=== PATIENT | female | born 1995 | race Caucasian/White ===

== ENCOUNTER 2018-06-30 11:39 | Inpatient (IN) | payer OTHER ==
[2018-06-30 12:11] VITALS: BMI 26.5
--- NOTE | 2018-06-30 14:07 | HP ---
COWS - Scale Resting Pulse: 0= [place] 80 or Below Sweatin=Flushed/Facial Moisture Restless Observation: 1= Difficult to Sit Still Pupil Size: 0= Normal to Room Light Bone or Joint Aches: 2= Severe Diffuse Aches Runny Nose/ Eye Tearin= Runny Nose/Eyes GI Upset > 30mins: 1= Stomach Cramp Tremor Observation: 2= Slight Tremor Visible Yawning Observation: 2= >3x During Session Anxiety or Irritability: 2=Irritable/Anxious Goose Flesh Skin: 3=Piloerection COWS Score: 17 CIWA Score - Admission Criteria OASAS Guidelines: Admission for Medically Managed Detox: Requires at least one of the followin. CIWA greater than 12 2. Seizures within the past 24 hours 3. Delirium tremens within the past 24 hours 4. Hallucinations within the past 24 hours 5. Acute intervention needed for co occurring medical disorder 6. Acute intervention needed for co occurring psychiatric disorder 7. Severe withdrawal that cannot be handled at a lower level of care (continued vomiting, continued diarrhea, abnormal vital signs) requiring intravenous medication and/or fluids 8. Admission ROS S - HPI Chief Complaint: I need to be a detox place to get clean from using percocets. this is my first detox. Allergies/Adverse Reactions: Allergies Allergy/AdvReac Type Severity Reaction Status Date / Time esomeprazole [From Nexium] Allergy Verified 06/30/18 12:04 escitalopram [From Lexapro] AdvReac Verified 06/30/18 12:03 History of Present Illness: pt is a 22yr old female with a history of percocet dependence seeking detox for treatment. This is her first detox ever. Pt has a h/o of Polycystic kidney syndrome with cyst to ovaries, pancreas, kidneys. Pt states she is being followed by her kidney specialist. pt has a h/o of depression, anxiety Exam Limitations: No Limitations - Ebola screening Have you traveled outside of the country in the last 21 days: No Have you had contact with anyone from an Ebola affected area: No Have you been sick,other than usual withdrawal symptoms: No Do you have a fever: No - Review of Systems Constitutional: Chills, Diaphoresis, Night Sweats, Changes in sleep EENT: reports: Tearing, Nose Congestion Respiratory: reports: No Symptoms reported, Productive cough GI: reports: Constipated, Diarrhea, Poor Appetite, Poor Fluid Intake, Abdominal cramping : reports: Frequency, Other (polysystic syndrome in ovaries, kidney, pancreas area . Only has one functional kidney) Musculoskeletal: reports: Joint Pain, Muscle Pain Integumentary: reports: Flushing, Sweating Neuro: reports: Headache, Tingling, Tremors Endocrine: reports: Excessive Sweating, Flushing, Intolerance to Cold, Intolerance to Heat Hematology: reports: No Symptoms Reported Psychiatric: reports: Judgement Intact, Mood/Affect Appropiate, Orientated x3, Agitated, Anxious Other Systems: Reviewed and Negative Patient History - Patient Medical History Hx Anemia: No Hx Asthma: Yes Hx Chronic Obstructive Pulmonary Disease (COPD): No Hx Cancer: No Hx Cardiac Disorders: No Hx Congestive Heart Failure: No Hx Hypertension: No Hx Hypercholesterolemia: No Hx Pacemaker: No HX Cerebrovascular Accident: No Hx Seizures: No Hx Dementia: No Hx Diabetes: No Hx Gastrointestinal Disorders: No Hx Liver Disease: No Hx Genitourinary Disorders: Yes (Polycystic kidney syndrome) Hx Sexually Transmitted Disorders: No Hx Renal Disease (ESRD): No Hx Thyroid Disease: No Hx Human Immunodeficiency Virus (HIV): No (negative) Hx Hepatitis C: No Hx Depression: Yes Hx Suicide Attempt: Yes (tried to OD age 14. denies any S/H ideations today) Hx Bipolar Disorder: No Hx Schizophrenia: No - Patient Surgical History Past Surgical History: No - PPD History Previous Implant?: Yes Documented Results: Positive w/o proof Implanted On Prior R Admission?: No PPD to be Administered?: No - Reproductive History Patient is a Female of Child Bearing Age (11 -55 yrs old): Yes Last Menstrual Period: 06/28/18 Patient : No - Smoking Cessation Smoking history: Never smoked Have you smoked in the past 12 months: No Hx Chewing Tobacco Use: No Initiated information on smoking cessation: No - Substance & Tx. History Hx Alcohol Use: Yes - Substances abused None Other (specify): percocet Substance route: Oral Frequency: Daily Amount used: 2 pills ( 10mg each) Age of first use: 16 Date of last use: 06/29/18 Marijuana/Hashish Substance route: Smoking Frequency: Daily Amount used: 1 joint Age of first use: 13 Date of last use: 06/30/18 Family Disease History - Family Disease History Family History: Denies Admission Physical Exam BHS - Vital Signs Vital Signs: Vital Signs - 24 hr 06/30/18 06/30/18 12:05 13:33 Temperature 98 F 98 F Pulse Rate 72 72 Respiratory 18 18 Rate Blood Pressure 107/70 107/70 - Physical General Appearance: Yes: Appropriately Dressed, Moderate Distress, Tremorous, Irritable, Sweating, Anxious HEENTM: Yes: Normal Voice, Nasal Congestion, Rhinorrhea Respiratory: Yes: Lungs Clear, Normal Breath Sounds, No Respiratory Distress Neck: Yes: No masses,lesions,Nodules Breast: Yes: Within Normal Limits Cardiology: Yes: Regular Rhythm, Regular Rate, S1, S2 Abdominal: Yes: Normal Bowel Sounds Genitourinary: Yes: Frequency Back: Yes: Normal Inspection Musculoskeletal: Yes: full range of Motion, Back pain Extremities: Yes: Normal Capillary Refill, Non-Tender, Tremors Neurological: Yes: Fully Oriented, Alert, Normal Response Integumentary: Yes: Diaphoresis Lymphatic: Yes: Within Normal Limits - Diagnostic (1) Opioid dependence with withdrawal Current Visit: Yes Status: Chronic (2) Polycystic kidney, adult type Current Visit: Yes Status: Chronic (3) Asthma Current Visit: Yes Status: Chronic Qualifiers: Asthma severity: mild Asthma persistence: unspecified Asthma complication type: unspecified Qualified Code(s): J45.909 - Unspecified asthma , uncomplicated Cleared for Admission [facility] - Detox or Rehab [facility] Level of Care: Medically Managed Detox Regimen/Protocol: Methadone Breathalyzer - Breathalyzer Breathalyzer: 0 POC Urine test - Test device test lot number: [id number] Expiration date: 11/07/19 - Control test control: Yes - Result Urine Test Results: Negative - NO line present Urine Drug Screen - Test Device Lot number: [id number] Expiration date: 02/06/20 - Control Is test valid?: Yes - Results Drug screen NEGATIVE: No Urine drug screen results: THC-Marijuana, OXY-Oxycodone, BUP-Suboxone Inpatient Rehab Admission - Rehab Decision to Admit Inpatient rehab admission?: No
[2018-06-30] MEDS ORDERED: MENTHOL/PHENOL 1 EACH UD MM PRN (14:36)
[2018-06-30] MEDS ORDERED: MAG HYDROX/AL HYDROX/SIMETH 30 ML UNIT-DOSE CUP PO PRN (14:36)
[2018-06-30] MEDS ORDERED: ACETAMINOPHEN 325 MG TABLET (FP) PO PRN ×2 (14:36)
[2018-06-30] MEDS ORDERED: MAGNESIUM CITRATE 300 ML BOTTLE PO PRN (14:36)
[2018-06-30] MEDS ORDERED: MAGNESIUM HYDROX 2400MG/30ML ORAL SUSPENSION 30 ML CUP PO PRN (14:36)
[2018-06-30] MEDS ORDERED: ONDANSETRON *ODT* 4 MG TABLET SL PRN (14:36)
[2018-06-30] MEDS ORDERED: IBUPROFEN 600 MG TABLET (FP) PO PRN (14:36)
[2018-06-30] MEDS ORDERED: MELATONIN 5 MG TABLETS PO PRN (14:36)
[2018-06-30] MEDS ORDERED: P-EPHED 60MG/TRIPROLIDI 2.5MG TABLET PO PRN (14:36)
[2018-06-30] MEDS ORDERED: BACLOFEN 10 MG TABLET (FP) PO PRN (14:36)
[2018-06-30] MEDS ORDERED: BISMUTH SUBSALICYLATE 524 MG/30 ML UD PO PRN (14:36)
[2018-06-30] MEDS ORDERED: cloNIDine HCL 0.1 MG TABLET PO PRN (14:36)
[2018-06-30] MEDS ORDERED: METHADONE HCL 10 MG TABLET (FOR DETOX USE ONLY) PO ONE ×3 (17:00→23:00)
[2018-06-30] MEDS: METHADONE HCL 10 MG TABLET (FOR DETOX USE ONLY) PO ONE (18:04)
[2018-06-30] MEDS: THIAMINE HCL 100 MG TABLET (FP) PO SCH (22:28)
[2018-06-30] MEDS: diazePAM 5 MG TABLET PO PRN (22:28)
[2018-06-30 22:58] LABS: HEMATOCRIT 35.2 % (32.4-45.2); HEMOGLOBIN 11.8 GM/dL (10.7-15.3); MCH 31.5 pg (25.7-33.7); MCHC 33.7 g/dl (32.0-36.0); MEAN CELL VOLUME 93.5 fl (80-96); MEAN PLT VOLUME 10.8 fl (7.5-11.1); PLATELET COUNT 172 K/MM3 (134-434); RBC 3.77 M/mm3 (3.60-5.2); RDW 13.1 % (11.6-15.6); WHITE BLOOD COUNT 5.2 K/mm3 (4.0-10.0)
[2018-06-30 23:07] LABS: ALBUMIN 3.8 g/dl (3.4-5.0); ALK PHOS 46 U/L (45-117); ANION GAP 3 MMOL/L (8-16); BILIRUBIN,TOTAL 0.3 mg/dL (0.2-1); BLOOD UREA NITROGEN 16 mg/dL (7-18); CALCIUM 9.1 mg/dL (8.5-10.1); CHLORIDE 106 mmol/L (98-107); CO2 31 mmol/L (21-32); CREATININE 0.9 mg/dL (0.55-1.3); GLUCOSE,RANDOM 75 mg/dL (74-106); SGOT/AST 15 U/L (15-37); SGPT/ALT 17 U/L (13-61); SODIUM 140 mmol/L (136-145); TOT PROT 6.7 g/dl (6.4-8.2)
[2018-06-30 23:13] LABS: EPI CELLS 0.4 /HPF (0-5/HPF); PH,URINE 5.5 (5.0-8.0); URINE APPEARANCE TURBID; URINE BACTERIA 126.7 /hpf (NEGATIVE); URINE BILIRUBIN NEGATIVE (NEGATIVE); URINE CASTS 1 /lpf (0-8); URINE COLOR YELLOW; URINE GLUCOSE (UA) NEGATIVE (NEGATIVE); URINE KETONE NEGATIVE (NEGATIVE); URINE LEUK ESTERASE 3+ (NEGATIVE); URINE NITRITE NEGATIVE (NEGATIVE); URINE PROTEIN 2+ (NEGATIVE); URINE RBC 86 /hpf (0-4); URINE UROBILINOGEN 0.2 mg/dL (0.2-1.0); URINE WBC 2012 /hpf (0-5)
[2018-07-01] MEDS: diazePAM 5 MG TABLET PO PRN ×2 (06:09→22:12)
[2018-07-01] MEDS: PRENATAL VITAMINS W/ FOLIC ACID TABLET (FP) PO SCH (10:18)
[2018-07-01] MEDS: METHADONE HCL 10 MG TABLET (FOR DETOX USE ONLY) PO ONE ×2 (10:19→11:55)
[2018-07-01] MEDS ORDERED: METHADONE HCL 10 MG TABLET (FOR DETOX USE ONLY) PO ONE ×2 (11:37→12:05)
--- NOTE | 2018-07-01 11:45 | PN ---
BHS COWS - Scale Resting Pulse: 0= [place] 80 or Below Sweatin=Flushed/Facial Moisture Restless Observation: 1= Difficult to Sit Still Pupil Size: 0= Normal to Room Light Bone or Joint Aches: 1= Mild Discomfort Runny Nose/ Eye Tearin= Nasal Congestion GI Upset > 30mins: 0= None Tremor Observation of Outstretched Hands: 2= Slight Tremor Visible Yawning Observation: 0= None Anxiety or Irritability: 2=Irritable/Anxious Goose Flesh Skin: 3=Piloerection COWS Score: 12 BHS Progress Note (SOAP) Subjective: anxiety sweats chills i want my methadone dose lowered Objective: 07/01/18 11:42 Vital Signs Temperature 97.9 F 07/01/18 09:18 Pulse Rate 67 07/01/18 09:18 Respiratory Rate 18 07/01/18 09:18 Blood Pressure 136/62 07/01/18 09:18 O2 Sat by Pulse Oximetry (%) Laboratory Tests 06/30/18 06/30/18 06/30/18 15:00 15:00 15:00 WBC 5.2 RBC 3.77 Hgb 11.8 Hct 35.2 MCV 93.5 MCH 31.5 MCHC 33.7 RDW 13.1 Plt Count 172 MPV 10.8 Sodium 140 Potassium 4.0 Chloride 106 Carbon Dioxide 31 Anion Gap 3 L BUN 16 Creatinine 0.9 Creat Clearance w eGFR 76.92 Random Glucose 75 Calcium 9.1 Total Bilirubin 0.3 AST 15 ALT 17 Alkaline Phosphatase 46 Total Protein 6.7 Albumin 3.8 Urine Color Urine Appearance Urine pH Ur Specific [place] Urine Protein Urine Glucose (UA) Urine Ketones Urine Blood Urine Nitrite Urine Bilirubin Urine Urobilinogen Ur Leukocyte Esterase Urine WBC (Auto) Urine RBC (Auto) Urine Casts (Auto) U Epithel Cells (Auto) Urine Bacteria (Auto) RPR Titer Nonreactive 06/30/18 22:50 WBC RBC Hgb Hct MCV MCH MCHC RDW Plt Count MPV Sodium Potassium Chloride Carbon Dioxide Anion Gap BUN Creatinine Creat Clearance w eGFR Random Glucose Calcium Total Bilirubin AST ALT Alkaline Phosphatase Total Protein Albumin Urine Color Yellow Urine Appearance Turbid Urine pH 5.5 Ur Specific [place] 1.018 Urine Protein 2+ H Urine Glucose (UA) Negative Urine Ketones Negative Urine Blood 3+ H Urine Nitrite Negative Urine Bilirubin Negative Urine Urobilinogen 0.2 Ur Leukocyte Esterase 3+ H Urine WBC (Auto) 2011 Urine RBC (Auto) 86 Urine Casts (Auto) 1 U Epithel Cells (Auto) 0.4 Urine Bacteria (Auto) 126.7 RPR Titer aaox3 ambulating no acute distress labs noted pt has her menstruation cycle Assessment: 07/01/18 11:44 withdrawal sx Plan: continue detox with lesser dose of methadone increase fluids
--- NOTE | 2018-07-01 12:10 | EKG ---
Test Reason : Blood Pressure : / mmHG Vent. Rate : 063 BPM Atrial Rate : 063 BPM P-R Int : 160 ms QRS Dur : 090 ms QT Int : 428 ms P-R-T Axes : 005 062 009 degrees QTc Int : 437 ms NORMAL SINUS RHYTHM NORMAL ECG NO PREVIOUS ECGS AVAILABLE Confirmed by CARLOS COTTER MD ([id number]) on 07/01/2018 12:10:23 PM Referred By: ALIYA NEAL Confirmed By:CARLOS COTTER MD
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
[2018-07-01] MEDS: hydrOXYzine PAMOATE 25 MG CAPSULE (FP) PO PRN ×2 (13:13→21:24)
[2018-07-01] MEDS: THIAMINE HCL 100 MG TABLET (FP) PO SCH (22:12)
[2018-07-02] MEDS: diazePAM 5 MG TABLET PO PRN ×3 (08:57→22:20)
[2018-07-02] MEDS ORDERED: METHADONE HCL 5 MG TABLET (FOR DETOX USE ONLY) PO ONE (10:00)
[2018-07-02] MEDS ORDERED: METHADONE HCL 10 MG TABLET (FOR DETOX USE ONLY) PO ONE ×2 (10:00)
[2018-07-02] MEDS: PRENATAL VITAMINS W/ FOLIC ACID TABLET (FP) PO SCH (10:20)
--- NOTE | 2018-07-02 11:55 | PN ---
BHS COWS - Scale Resting Pulse: 0= [place] 80 or Below Sweatin= Chills/Flushing Restless Observation: 1= Difficult to Sit Still Pupil Size: 0= Normal to Room Light Bone or Joint Aches: 2= Severe Diffuse Aches Runny Nose/ Eye Tearin= Nasal Congestion GI Upset > 30mins: 1= Stomach Cramp Tremor Observation of Outstretched Hands: 2= Slight Tremor Visible Yawning Observation: 0= None Anxiety or Irritability: 2=Irritable/Anxious Goose Flesh Skin: 0=Smooth Skin COWS Score: 10 BHS Progress Note (SOAP) Subjective: sweats anxiety body aches interrupted sleep Objective: 07/02/18 11:55 Vital Signs Temperature 97.6 F 07/02/18 09:27 Pulse Rate 72 07/02/18 09:27 Respiratory Rate 18 07/02/18 09:27 Blood Pressure 117/78 07/02/18 09:27 O2 Sat by Pulse Oximetry (%) Laboratory Tests 06/30/18 06/30/18 06/30/18 15:00 15:00 15:00 WBC 5.2 RBC 3.77 Hgb 11.8 Hct 35.2 MCV 93.5 MCH 31.5 MCHC 33.7 RDW 13.1 Plt Count 172 MPV 10.8 Sodium 140 Potassium 4.0 Chloride 106 Carbon Dioxide 31 Anion Gap 3 L BUN 16 Creatinine 0.9 Creat Clearance w eGFR 76.92 Random Glucose 75 Calcium 9.1 Total Bilirubin 0.3 AST 15 ALT 17 Alkaline Phosphatase 46 Total Protein 6.7 Albumin 3.8 Urine Color Urine Appearance Urine pH Ur Specific [place] Urine Protein Urine Glucose (UA) Urine Ketones Urine Blood Urine Nitrite Urine Bilirubin Urine Urobilinogen Ur Leukocyte Esterase Urine WBC (Auto) Urine RBC (Auto) Urine Casts (Auto) U Epithel Cells (Auto) Urine Bacteria (Auto) RPR Titer Nonreactive 06/30/18 22:50 WBC RBC Hgb Hct MCV MCH MCHC RDW Plt Count MPV Sodium Potassium Chloride Carbon Dioxide Anion Gap BUN Creatinine Creat Clearance w eGFR Random Glucose Calcium Total Bilirubin AST ALT Alkaline Phosphatase Total Protein Albumin Urine Color Yellow Urine Appearance Turbid Urine pH 5.5 Ur Specific [place] 1.018 Urine Protein 2+ H Urine Glucose (UA) Negative Urine Ketones Negative Urine Blood 3+ H Urine Nitrite Negative Urine Bilirubin Negative Urine Urobilinogen 0.2 Ur Leukocyte Esterase 3+ H Urine WBC (Auto) 2011 Urine RBC (Auto) 86 Urine Casts (Auto) 1 U Epithel Cells (Auto) 0.4 Urine Bacteria (Auto) 126.7 RPR Titer aaox3 ambulating no acute distress Assessment: 07/02/18 11:55 withdrawal sx Plan: continue detox increase fluids
[2018-07-02] MEDS: THIAMINE HCL 100 MG TABLET (FP) PO SCH (22:20)
[2018-07-02] MEDS: SUVOREXANT 10 MG TABLET PO PRN (22:20)
[2018-07-03] MEDS: diazePAM 5 MG TABLET PO PRN (09:01)
[2018-07-03] MEDS: METHADONE HCL 10 MG TABLET (FOR DETOX USE ONLY) PO ONE (09:07)
[2018-07-03] MEDS: PRENATAL VITAMINS W/ FOLIC ACID TABLET (FP) PO SCH (09:07)
[2018-07-03] MEDS ORDERED: COLLOIDAL OATMEAL 1 BAR EACH TP PRN (10:16)
[2018-07-03] MEDS ORDERED: diphenhydrAMINE HCL 25 MG CAPSULE (FP) PO ONE (10:18)
[2018-07-03] MEDS ORDERED: diphenhydrAMINE HCL 50 MG CAPSULE PO ONE (10:30)
[2018-07-03] MEDS: CLINDAMYCIN PHOSPHATE 1% TOPICAL GEL 30 GM TUBE TP SCH ×2 (12:30→22:34)
--- NOTE | 2018-07-03 13:54 | PN ---
BHS COWS - Scale Resting Pulse: 0= [place] 80 or Below Sweatin= Chills/Flushing Restless Observation: 0= Sits Still Pupil Size: 0= Normal to Room Light Bone or Joint Aches: 1= Mild Discomfort Runny Nose/ Eye Tearin= None GI Upset > 30mins: 0= None Tremor Observation of Outstretched Hands: 2= Slight Tremor Visible Yawning Observation: 1= 1-2x During Session Anxiety or Irritability: 2=Irritable/Anxious Goose Flesh Skin: 0=Smooth Skin COWS Score: 7 BHS Progress Note (SOAP) Subjective: feeling much better anxiety my skin on my face is breaking out i have a sore on my lip its painful and just appeared. Objective: 07/03/18 13:51 Vital Signs Temperature 97.9 F 07/03/18 09:58 Pulse Rate 60 07/03/18 09:58 Respiratory Rate 18 07/03/18 09:58 Blood Pressure 130/75 07/03/18 09:58 O2 Sat by Pulse Oximetry (%) aaox3 ambulating no acute distress Assessment: 07/03/18 13:52 mild withdrawal sx skin breakout to face noted appears to be acne sore to lip appears to be a herpes sore Plan: continue detox cleocin topical to apply on face ordered valtrex 1000mg x one dose aveeno soap d/c in am
[2018-07-03] MEDS ORDERED: valACYclovir HCL 500 MG TABLET (FP) PO ONE (14:15)
[2018-07-03] MEDS: hydrOXYzine PAMOATE 25 MG CAPSULE (FP) PO PRN (17:50)
[2018-07-03] MEDS ORDERED: cloNIDine HCL 0.1 MG TABLET PO ONE (17:56)
--- NOTE | 2018-07-03 18:04 | PN ---
[facility] Progress Note Note: gwyn has withdrawal symptom Vital Signs Temperature 98.2 F 07/03/18 14:28 Pulse Rate 70 07/03/18 14:28 Respiratory Rate 16 07/03/18 14:28 Blood Pressure 130/75 07/03/18 14:28 O2 Sat by Pulse Oximetry (%) will give clonidine 0.1 mg po now then tid to hold if systolic bp below 100 robaxin 500 msg po qid prn continue detox and close monitoring
[2018-07-03] MEDS: METHOCARBAMOL 500 MG TABLET PO SCH ×2 (18:19→22:34)
[2018-07-03] MEDS: cloNIDine HCL 0.1 MG TABLET PO SCH (22:34)
[2018-07-03] MEDS: SUVOREXANT 10 MG TABLET PO PRN (22:37)
[2018-07-03] MEDS: THIAMINE HCL 100 MG TABLET (FP) PO SCH (23:23)
[2018-07-04] MEDS ORDERED: METHADONE HCL 5 MG TABLET (FOR DETOX USE ONLY) PO ONE (06:00)
[2018-07-04] MEDS: cloNIDine HCL 0.1 MG TABLET PO SCH (06:21)
[2018-07-04] MEDS: hydrOXYzine PAMOATE 25 MG CAPSULE (FP) PO PRN (06:23)
[2018-07-04 09:47] VITALS: BP 113/80; PULSE 88; TEMP 97.3
[2018-07-04] MEDS: PRENATAL VITAMINS W/ FOLIC ACID TABLET (FP) PO SCH (10:19)
--- NOTE | 2018-07-04 13:30 | DS ---
[facility] Detox Discharge Summary Admission Date: 06/30/18 Discharge Date: 07/04/18 - History Present History: Cannabis Dependence, Opioid Dependence - Physical Exam Results Vital Signs: Vital Signs Temperature 97.3 F L 07/04/18 09:47 Pulse Rate 88 07/04/18 09:47 Respiratory Rate 18 07/04/18 09:47 Blood Pressure 113/80 07/04/18 09:47 O2 Sat by Pulse Oximetry (%) - Treatment Hospital Course: Detox Protocol Followed, Detoxed Safely, Responded well, Discharged Condition Good, Rehab Referral Accepted - Medication Discharge Medications: Ambulatory Orders NK [No Known Home Medication] 06/30/18 - Diagnosis (1) Opioid dependence Status: Chronic Qualifiers: Substance use status: uncomplicated Qualified Code(s): F11.20 - Opioid dependence, uncomplicated (2) Cannabis dependence Status: Chronic (3) Asthma Status: Chronic Qualifiers: Asthma severity: mild Asthma persistence: unspecified Asthma complication type: unspecified Qualified Code(s): J45.909 - Unspecified asthma , uncomplicated - AMA Did Patient Leave Against Medical Advice: No
== END 2018-07-04 10:19 | disposition home or self-care (01) | DRG 773 ==
LOC: YASAS 11:39 → Y6N 16:39
PROVIDERS: ADMIT Surgery; ATTEND Surgery
PROC: HZ2ZZZZ Detoxification Services for Substance Abuse Treatment (ICD-10-PCS; principal; 2018-06-30)
DX: F11.23 Opioid dependence with withdrawal (principal); F12.20 Cannabis dependence, uncomplicated; F19.282 Other psychoactive substance dependence with psychoactive substance-induced sleep disorder; F19.24 Other psychoactive substance dependence with psychoactive substance-induced mood disorder; F43.10 Post-traumatic stress disorder, unspecified; F41.9 Anxiety disorder, unspecified; J45.909 Unspecified asthma, uncomplicated; Q61.2 Polycystic kidney, adult type; L70.8 Other acne; B00.1 Herpesviral vesicular dermatitis; R76.11 Nonspecific reaction to tuberculin skin test without active tuberculosis
CPT/HCPCS: 36415; 80053; 81003; 81025; 85027; 86593; 93005; 93010; J0475; J0735